=== PATIENT | male | born 1975 | race Caucasian/White ===

== ENCOUNTER 2017-11-13 06:52 | Day surgery (SDC) | payer BC, SELFPAY ==
[2017-11-10 09:36] VITALS: BMI 38.3
[2017-11-13] VITALS (11 sets, daily range): BP systolic 114–219; BP diastolic 62–96; PULSE 74–85; RESP 12–18; TEMP 36.4–36.6; O2SAT 76–99
--- NOTE | 2017-11-13 08:34 | HMH.PROC ---
[facility] Procedure Note Procedure Note:: Colonoscopy Procedure Report: Colonoscopy Endoscopist: Bruce Russ II, MD Referring physician: Julia ENAMORADO Date of Procedure: November 13, 2017 Equipment: Olympus 180 variable stiffness pediatric colonoscope Sedation: Fentanyl 200 mg IV/ Versed 11 mg IV Indication: Mr. Nunez is a 41-year-old gentleman who is here for screening colonoscopy. His brother had a very advanced colon polyp (benign) at the age of 39. His father also had colon polyps. The patient reports no abdominal pain, weight loss, change in his bowel habits or frequent rectal bleeding. The patient has had some intermittent bleeding with hemorrhoids. Procedure: Prior to the procedure, a history and physical exam was performed, and patient's medications and allergies were reviewed. The risks, benefits and alternatives of the sedation and procedure were discussed with the patient. All questions were answered and informed consent was obtained. The patient was brought to the procedure room. Patient identification and proposed procedure were verified by the physician and the nurse. The patient was placed in a left lateral decubitus position and the scope was passed under direct vision. Throughout the procedure, the patient's blood pressure, pulse, and oxygen saturations were monitored continuously. The colonoscopy was accomplished without difficulty. The patient tolerated the procedure well. Findings: On digital rectal examination there was normal rectal tone. There were no external hemorrhoids. The prostate was 2+, mildly firm but symmetric without nodules. The colonoscope was introduced through the anal canal to the rectum and advanced to the cecum. The ileocecal valve and appendiceal orifice were identified. The scope was advanced a short distance into the ileum which appeared grossly normal. The scope was then withdrawn into the colon. The cecum, ascending, transverse, descending, sigmoid and rectum were grossly normal. There were no mucosal abnormalities identified. Upon retroflexion within the rectum there were grade 1 internal hemorrhoids. Impression: 1. Normal colonoscopy with intubation of the terminal ileum 2. Grade 1 internal hemorrhoids Plan: I would recommend repeat screening/surveillance colonoscopy again at age 49 by ACS guidelines. I would encourage fiber bulk supplementation on a long-term daily maintenance basis.
--- NOTE | 2017-11-13 09:00 | P.PCN_ITS ---
[facility] Procedure Note Procedure Note:: Colonoscopy Procedure Report: Colonoscopy Endoscopist: Bruce Russ II, MD Referring physician: Julia ENAMORADO Date of Procedure: November 13, 2017 Equipment: Olympus 180 variable stiffness pediatric colonoscope Sedation: Fentanyl 200 mg IV/ Versed 11 mg IV Indication: Mr. Nunez is a 41-year-old gentleman who is here for screening colonoscopy. His brother had a very advanced colon polyp (benign) at the age of 39. His father also had colon polyps. The patient reports no abdominal pain , weight loss, change in his bowel habits or frequent rectal bleeding. The patient has had some intermittent bleeding with hemorrhoids. Procedure: Prior to the procedure, a history and physical exam was performed, and patient' s medications and allergies were reviewed. The risks, benefits and alternatives of the sedation and procedure were discussed with the patient. All questions were answered and informed consent was obtained. The patient was brought to the procedure room. Patient identification and proposed procedure were verified by the physician and the nurse. The patient was placed in a left lateral decubitus position and the scope was passed under direct vision. Throughout the procedure, the patient's blood pressure, pulse, and oxygen saturations were monitored continuously. The colonoscopy was accomplished without difficulty. The patient tolerated the procedure well. Findings: On digital rectal examination there was normal rectal tone. There were no external hemorrhoids. The prostate was 2+, mildly firm but symmetric without nodules. The colonoscope was introduced through the anal canal to the rectum and advanced to the cecum. The ileocecal valve and appendiceal orifice were identified. The scope was advanced a short distance into the ileum which appeared grossly normal. The scope was then withdrawn into the colon. The cecum , ascending, transverse, descending, sigmoid and rectum were grossly normal. There were no mucosal abnormalities identified. Upon retroflexion within the rectum there were grade 1 internal hemorrhoids. Impression: 1. Normal colonoscopy with intubation of the terminal ileum 2. Grade 1 internal hemorrhoids Plan: I would recommend repeat screening/surveillance colonoscopy again at age 49 by ACS guidelines. I would encourage fiber bulk supplementation on a long-term daily maintenance basis.
== END 2017-11-13 10:00 | disposition home or self-care (01) ==
LOC: OUTP 06:54
PROVIDERS: PCP Nurse Practitioner; Visit Provider Internal Medicine Gastroenterology
PROC: 0DJD8ZZ Inspection of Lower Intestinal Tract, Via Natural or Artificial Opening Endoscopic (ICD-10-PCS; CPT 45378; principal; 2017-11-13 08:30)
DX: Z12.11 Encounter for screening for malignant neoplasm of colon (principal); K64.0 First degree hemorrhoids
CPT/HCPCS: 45378; 99152

== ENCOUNTER 2019-03-01 20:49 | Emergency (ER) | payer BC, SELFPAY ==
[2019-03-01 21:04] VITALS: BP 140/84; PULSE 79; RESP 20; TEMP 36.8; O2SAT 98; BMI 34.8
--- NOTE | 2019-03-01 21:47 | HMH.EDUTC ---
[facility] Disposition Clinical Impression: Sinusitis Qualifiers: Sinusitis location: unspecified location Chronicity: unspecified Qualified Code(s): J32.9 - Chronic sinusitis, unspecified Disposition: Home, Self-Care Condition on Discharge: Good Instructions: Sinusitis, Sinus Headache, DI for Sinusitis, Amoxicillin and Clavulanic Acid, Prednisone Additional Instructions: Sinus infection Start antibiotic. Sinus infections may take 2-3 days to notice much improvement so be sure to use conservative measures as discussed for symptoms Flonase 2 spray in each nostril daily to help with nasal congestion, sinus an ear pressure/inflammation Lots of Fluids Sleep elevated Humidifer/vaporizer Augmentin can cause GI effects. Probiotics may help to prevent these symptoms Follow up with family doctor if no improvement or any worsening of symptoms Follow up with family doctor in the next 48-72 hours if no improvement or worsening of symptoms Return if needed Straight to ER if any life threatening symptoms Prescriptions: Amoxicillin/Potassium Clav [Augmentin 875-125 Tablet] 1 tab PO Q12H 7 Days #14 tab predniSONE [Prednisone 5mg Tab Dose-Pack] 5 mg PO UD DOSE PK #21 pack Referrals: Kamini Guerrero APRN [Primary Care Provider] - As needed Time of Disposition: 21:52 Medical Decision Making - Saleem Inquiry Pt receiving controlled substance: No Saleem was queried for this patient: No Vital Signs: 03/01/19 21:04 Temperature 98.3 F Temperature Source Oral Pulse Rate [Right Brachial] 79 Respiratory Rate 20 Blood Pressure [Right Arm] 140/84 Blood Pressure Mean [Right Arm] 102 Blood Pressure Source [Right Arm] Automatic Cuff Blood Pressure Position [Right Arm] Sitting 02 Sat by Pulse Oximetry 98 Oxygen Delivery Method Room Air [facility] HPI - General Stated complaint: head congestion Time Seen by Provider: 03/01/19 21:47 Mode of Arrival: Family Vehicle Source of Information: Patient Limitations: No Limitations Description of Symptoms (Recalled from Triage Doc. by RN): c/o congestion HEENT Symptoms (Recalled from RN notes): Yes Resp Symptoms (Recalled from RN notes): Yes Skin Symptoms (Recalled from RN notes): No MS Symptoms (Recalled from RN notes): No Functional Status (Recalled from RN notes): n/a - History of Present Illness Provider Complaint: Patient state that he has been having sinus pain and pressure for several days that has continued to get worse States that he has been having pressure like feeling in his teeth and behind his eyes States that he had similar symptoms about 2 weeks ago that came got better then returned worse than before - Related Data Previous Rx's Medication Instructions Recorded Amoxicillin/Potassium Clav 1 tab PO Q12H 7 Days #14 tab 03/01/19 [Augmentin 875-125 Tablet] predniSONE [Prednisone 5mg Tab 5 mg PO UD DOSE PK #21 pack 03/01/19 Dose-Pack] Allergies Allergy/AdvReac Type Severity Reaction Status Date / Time No Known Allergies Allergy Verified 11/13/17 07:37 - Worker's Comp Is this a Worker's Comp case?: No [facility] History - Hepatitis A Screen Drug use history?: No High risk sexual behaviors?: No History of sexually transmitted infection?: No 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r?: No Do you have indoor plumbing?: Yes Do you have electricity?: Yes Attestation statement:: This patient has been screened for Hepatitis A risk factors. I have reviewed the patient's past medical history: Yes Medical History: Reports:: Lung Disease (sleep apnea- uses cpap, hx of smoking) Denies:: Diabetes Mellitus Type 1, Diabetes Mellitus Type 2, Internal Pacemaker, Seizures Other Surgeries: No: Pacemaker - Social History Alcohol Intake: never Occupational Status: other - Psychiatric History Expresses thoughts of harming self/others: None Suicide Plan Description: No Plan ROS Obtained: Yes All systems reviewed & no additional complaints, Yes Systems reviewed as appropriate & n
--- NOTE | 2019-03-01 21:51 | ED_ITS ---
[facility] [place] Clinical Impression: Sinusitis Qualifiers: Sinusitis location: unspecified location Chronicity: unspecified Qualified Code(s): J32.9 - Chronic sinusitis, unspecified Disposition: Home, Self-Care Condition on Discharge: Good Instructions: Sinusitis, Sinus Headache, DI for Sinusitis, Amoxicillin and Clavulanic Acid, Prednisone Additional Instructions: Sinus infection Start antibiotic. Sinus infections may take 2-3 days to notice much improvement so be sure to use conservative measures as discussed for symptoms Flonase 2 spray in each nostril daily to help with nasal congestion, sinus an ear pressure/inflammation Lots of Fluids Sleep elevated Humidifer/vaporizer Augmentin can cause GI effects. Probiotics may help to prevent these symptoms Follow up with family doctor if no improvement or any worsening of symptoms Follow up with family doctor in the next 48-72 hours if no improvement or worsening of symptoms Return if needed Straight to ER if any life threatening symptoms Prescriptions: Amoxicillin/Potassium Clav [Augmentin 875-125 Tablet] 1 tab PO Q12H 7 Days #14 tab predniSONE [Prednisone 5mg Tab Dose-Pack] 5 mg PO UD DOSE PK #21 pack Referrals: Kamini Guerrero APRN [Primary Care Provider] - As needed Time of Disposition: 21:52 Medical Decision Making - Saleem Inquiry Pt receiving controlled substance: No Saleem was queried for this patient: No Vital Signs: 03/01/19 21:04 Temperature 98.3 F Temperature Source Oral Pulse Rate [Right Brachial] 79 Respiratory Rate 20 Blood Pressure [Right Arm] 140/84 Blood Pressure Mean [Right Arm] 102 Blood Pressure Source [Right Arm] Automatic Cuff Blood Pressure Position [Right Arm] Sitting 02 Sat by Pulse Oximetry 98 Oxygen Delivery Method Room Air [facility] [place] - General Stated complaint: head congestion Time Seen by Provider: 03/01/19 21:47 Mode of Arrival: Family Vehicle Source of Information: Patient Limitations: No Limitations Description of Symptoms (Recalled from Triage Doc. by RN): c/o congestion HEENT Symptoms (Recalled from RN notes): Yes Resp Symptoms (Recalled from RN notes): Yes Skin Symptoms (Recalled from RN notes): No MS Symptoms (Recalled from RN notes): No Functional Status (Recalled from RN notes): n/a - History of Present Illness Provider Complaint: Patient state that he has been having sinus pain and pressure for several days that has continued to get worse States that he has been having pressure like feeling in his teeth and behind his eyes States that he had similar symptoms about 2 weeks ago that came got better then returned worse than before - Related Data Previous Rx's Medication Instructions Recorded Amoxicillin/Potassium Clav 1 tab PO Q12H 7 Days #14 tab 03/01/19 [Augmentin 875-125 Tablet] predniSONE [Prednisone 5mg Tab 5 mg PO UD DOSE PK #21 pack 03/01/19 Dose-Pack] Allergies Allergy/AdvReac Type Severity Reaction Status Date / Time No Known Allergies Allergy Verified 11/13/17 07:37 - Worker's Comp Is this a Worker's Comp case?: No [facility] History - Hepatitis A Screen Drug use history?: No High risk sexual behaviors?: No History of sexually transmitted infection?: No 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
[2019-03-01 21:54] VITALS: BP 140/84; PULSE 79; RESP 20; TEMP 36.8; O2SAT 98
== END 2019-03-01 21:57 | disposition home or self-care (01) ==
PROVIDERS: Emergency Provider Nurse Practitioner; PCP Nurse Practitioner
DX: J32.9 Chronic sinusitis, unspecified (principal)
CPT/HCPCS: 99201

== ENCOUNTER → 2019-04-08 15:01 | Outpatient (CLI) | payer BC, SELFPAY ==
--- NOTE | 2019-04-08 15:07 | XR_ITS ---
XR finger RT min 2V CLINICAL INDICATION: ITS.REASON: SWELLING OF RT INDEX FINGER ORDERING PHYSICIAN: Julia Cervantes APRN PATIENT AGE: 43 years Comparison: None FINDINGS: No fracture or dislocation. No lytic or blastic change. Mild generalized soft tissue swelling. No radio opaque foreign body or soft tissue gas. IMPRESSION: Mild soft tissue swelling otherwise negative
== END ==
PROVIDERS: PCP Nurse Practitioner; Visit Provider Nurse Practitioner Family
DX: M79.89 Other specified soft tissue disorders (principal)
CPT/HCPCS: 73140

== ENCOUNTER → 2020-06-05 12:17 | Outpatient (CLI) | payer BC, SELFPAY ==
--- NOTE | 2020-06-05 12:24 | XR_ITS ---
PROCEDURE: XR HIP LT 2-3V W/PELVIS CLINICAL INDICATION: LT HIP INJURY Left hip pain COMPARISON: No exams were available for comparison FINDINGS: No fracture or dislocation is evident. No significant degenerative change. No lytic or blastic change. Unremarkable soft tissues. IMPRESSION: Negative left hip Dictated by: Uriel Nelson MD 06/05/2020 12:52 Uriel Nelson MD in [place] 06/05/2020 12:52
== END ==
PROVIDERS: PCP Nurse Practitioner Family; Visit Provider Nurse Practitioner Family
DX: S79.912A Unspecified injury of left hip, initial encounter (principal)
CPT/HCPCS: 73502

== ENCOUNTER 2020-08-19 12:23 | Emergency (ER) | payer BC, SELFPAY ==
[2020-08-19 12:55] VITALS: BP 149/90; PULSE 102; RESP 14; TEMP 37.4; O2SAT 96; BMI 34.8
[2020-08-19 13:03] LABS: UTC Influenza A Antigen Negative (Negative)
[2020-08-19 13:04] LABS: UTC Influenza B Antigen Negative (Negative)
--- NOTE | 2020-08-19 13:18 | HMH.EDUTC ---
[facility] [place] Disposition Clinical Impression: URI (upper respiratory infection) Qualifiers: URI type: unspecified URI Qualified Code(s): J06.9 - Acute upper respiratory infection, unspecified Disposition: Home, Self-Care Condition on Discharge: Good Instructions: Sore Throat, DI for Cough -- Adult, DI for Sinusitis Additional Instructions: *Monitor Temp, Over the counter Motrin or Tylenol as directed/as needed Tylenol every 4 hours and Motrin every 6 hours (as long as your family doctor has told you that you can take it) for fever or pain. and straight to ER if unable to lower temp less than 101.0 after medication given *Warm salt water gargles may help to soothe the throat *Throat Lozenges *Warm fluids like tea with honey may help to soothe the throat *Sleep elevated *Humidifier/Vaporizer *Flonase 2 sprays in each nostril daily but be aware that it may take 2-3 days before you notice improvement Follow up IMMEDIATELY for new or worsening symptoms or no Noticeable improvement over the next 48-72 hours. 911 for difficulty breathing or swallowing You was tested for today for COVID19 your test result should be back in the next 24-48 hours, you may call to the [facility] tomorrow to see if your test results are back and the result [phone] You was given a handout with instructions for Self Quarantine and Self isolation for while you wait on test results and what to do if they are positive If you are positive the Health Dept will be contacting you also Prescriptions: Fluticasone Propionate [Flonase 50mcg nasal spray 16gm] 1 spr NS DAILY #1 bottle Transmission Status: Pending to [facility] methylPREDNISolone [Medrol 4mg tab] 4 mg PO DIRECTED #21 tab Transmission Status: Pending to [facility] Azithromycin [Z-Davy 250mg Tab] 250 mg PO DIRECTED #6 tab Transmission Status: Pending to [facility] Referrals: Kamini Guerrero APRN [Primary Care Provider] - As needed Forms: Work/School Release Time of Disposition: 13:25 Medical Decision Making - Saleem Inquiry Pt receiving controlled substance: No Saleem was queried for this patient: No Vital Signs: 08/19/20 12:55 Temperature 99.4 F Temperature Source Oral Pulse Rate [Left Radial] 102 H Respiratory Rate 14 Blood Pressure [Right Arm] 149/90 H Blood Pressure Mean [Right Arm] 109 Blood Pressure Source [Right Arm] Automatic Cuff Blood Pressure Position [Right Arm] Sitting 02 Sat by Pulse Oximetry 96 Oxygen Delivery Method Room Air - Lab Data Lab results reviewed: Yes: I reviewed the patient's lab results. Lab Results 08/19/20 12:49: Influenza Type A Ag Negative, Influenza Type B Ag Negative Orders (Tests/Meds): ORDERS Category Date Time Status Covid-19 Nasal PCR ([facility]) Routine Lab 08/19/20 12:45 Received [facility] [place] HPI - General Stated complaint: flu symptoms Time Seen by Provider: 08/19/20 13:18 Mode of Arrival: Ambulatory Source of Information: Patient Limitations: No Limitations Description of Symptoms (Recalled from Triage Doc. by RN): pt reports having a fever, body aches, headache, and productive cough that started yesterday HEENT Symptoms (Recalled from RN notes): Yes (headache) Resp Symptoms (Recalled from RN notes): Yes Skin Symptoms (Recalled from RN notes): No MS Symptoms (Recalled from RN notes): No Functional Status (Recalled from RN notes): wnl - History of Present Illness Provider Complaint: Patient state sthat he has felt something coming on for several days States that yesterday he started having cough, sore throat, sinus pressure and drainage and over all not feeling well States that he has not been exposed to COVID that he is aware of but not certain States that he come in to get checked thinking he may have the flu - Related Data Previous Rx's Medication Instructions Recorded Azithromycin [Z-Davy 250mg Tab] 250 mg PO DIRECTED #6 tab 08/19/20 Fluticasone Propionate [Flonase 1 spr NS DAILY #1 maria elena
[2020-08-19 13:30] VITALS: BP 149/90; PULSE 102; RESP 14; TEMP 37.4; O2SAT 96
== END 2020-08-19 13:30 | disposition home or self-care (01) ==
PROVIDERS: Emergency Provider Nurse Practitioner; PCP Nurse Practitioner
DX: J06.9 Acute upper respiratory infection, unspecified (principal)
CPT/HCPCS: 87804; 99202; U0003

== ENCOUNTER → 2020-10-12 14:21 | Outpatient (CLI) | payer BC, SELFPAY | PROVIDERS: PCP Nurse Practitioner Family; Visit Provider Nurse Practitioner Family | DX: Z11.52 Encounter for screening for COVID-19 (principal); R68.89 Other general symptoms and signs | CPT/HCPCS: 87275; 87276; U0003 ==

== ENCOUNTER → 2020-10-19 12:38 | Outpatient (CLI) | payer BC, SELFPAY ==
[2020-10-20 11:45] LABS: Covid-19 Nasal PCR Sendout P&C Negative
== END ==
PROVIDERS: PCP Nurse Practitioner; Visit Provider Nurse Practitioner
DX: Z20.822 Contact with and (suspected) exposure to COVID-19 (principal)
CPT/HCPCS: U0004

== ENCOUNTER → 2020-12-10 10:37 | Outpatient (CLI) | payer BC, SELFPAY | PROVIDERS: PCP Nurse Practitioner Family; Visit Provider Nurse Practitioner Family | DX: Z20.822 Contact with and (suspected) exposure to COVID-19 (principal) | CPT/HCPCS: U0003 ==

== ENCOUNTER → 2021-05-30 12:32 | Outpatient (CLI) | payer SELFPAY | PROVIDERS: PCP Nurse Practitioner Family; Visit Provider Nurse Practitioner Family | DX: Z20.822 Contact with and (suspected) exposure to COVID-19 (principal); U07.1 COVID-19 | CPT/HCPCS: U0003 ==

== ENCOUNTER → 2021-08-22 14:06 | Outpatient (CLI) | payer BC, SELFPAY | PROVIDERS: PCP Nurse Practitioner Family; Visit Provider Nurse Practitioner | DX: Z20.822 Contact with and (suspected) exposure to COVID-19 (principal) | CPT/HCPCS: C9803; U0003; U0005 ==

== ENCOUNTER 2021-08-23 13:06 | Emergency (ER) | payer BC, SELFPAY ==
[2021-08-23 14:59] VITALS: BP 137/91; PULSE 78; RESP 18; TEMP 36.9; O2SAT 98; BMI 55.5
--- NOTE | 2021-08-23 15:58 | HMH.EDUTC ---
[facility] [place] Disposition Clinical Impression: Laceration of right hand Qualifiers: Encounter type: initial encounter Foreign body presence: without foreign body Qualified Code(s): S61.411A - Laceration without foreign body of right hand, initial encounter Disposition: Home, Self-Care Condition on Discharge: Good Instructions: DI for Laceration Repair-Skin Glue, DI for Minor Laceration Additional Instructions: Keep the wound clean and dry. Watch the for signs of infection, such as redness, swelling, drainage, fever. etc. Give tylenol or ibuprofen for pain. Follow up with your regular doctor. GO TO THE ER FOR ANY WORSENING SYMPTOMS OR CONCERNS. Referrals: Julia Cervantes APRN [Primary Care Provider] - Forms: Work/School Release Time of Disposition: 16:00 Medical Decision Making - Medical Records Medical records reviewed: No: I reviewed the patient's medical records. - Saleem Inquiry Pt receiving controlled substance: No Vital Signs: 08/23/21 14:59 08/23/21 16:11 Temperature 98.4 F 98.4 F Temperature Source Oral Oral Pulse Rate 78 Pulse Rate [Left Radial] 78 Respiratory Rate 18 18 Blood Pressure 137/91 H Blood Pressure [Right Arm] 137/91 H Blood Pressure Mean [Right Arm] 106 02 Sat by Pulse Oximetry 98 Oxygen Delivery Method Room Air Room Air [facility] [place] HPI - General Stated complaint: [id number] lac to right hand,home accident Time Seen by Provider: 08/23/21 15:00 Mode of Arrival: Ambulatory Source of Information: Patient Limitations: No Limitations Description of Symptoms (Recalled from Triage Doc. by RN): pt to [facility] per pvt car. pt states he was opening a can of meat this morning and cut his right hand. pt had a laceration to the right palm of his hand. pt reports 3/10 pain to the laceration. HEENT Symptoms (Recalled from RN notes): No Resp Symptoms (Recalled from RN notes): No Skin Symptoms (Recalled from RN notes): Yes MS Symptoms (Recalled from RN notes): No Functional Status (Recalled from RN notes): na - History of Present Illness Provider Complaint: He was opening a can of food today when he slipped and cut his right hand with the sharp part of the can. His tetanus immunization is up to date. - Related Data Previous Rx's Medication Instructions Recorded Azithromycin [Z-Davy 250mg Tab] 250 mg PO DIRECTED #6 tab 08/19/20 Fluticasone Propionate [Flonase 1 spr NS DAILY #1 bottle 08/19/20 50mcg nasal spray 16gm] methylPREDNISolone [Medrol 4mg 4 mg PO DIRECTED #21 tab 08/19/20 tab] Allergies Allergy/AdvReac Type Severity Reaction Status Date / Time No Known Allergies Allergy Verified 08/19/20 13:04 - Worker's Comp Is this a Worker's Comp case?: No [facility] History - Hepatitis A Screen Drug use history?: No High risk sexual behaviors?: No History of sexually transmitted infection?: No 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r?: No Do you have indoor plumbing?: Yes Do you have electricity?: Yes Attestation statement:: This patient has been screened for Hepatitis A risk factors. I have reviewed the patient's past medical history: Yes Medical History: Reports:: Lung Disease (sleep apnea- uses cpap, hx of smoking) Denies:: Diabetes Mellitus Type 1, Diabetes Mellitus Type 2, Internal Pacemaker, Seizures Other Surgeries: No: Pacemaker Amputation: No Fractures: No - Social History Alcohol Intake: never Occupational Status: employed Housing: house Household Members: spouse ROS Obtained: Yes All systems reviewed & no additional complaints - Constitutional Constitutional: Denies chills, Denies fever(s) - Musculoskeletal Musculoskeletal: Denies joint pain - Integumentary/Breasts Skin/Breast: Reports as per HPI - Neurologic Neurologic: Denies tingling/numbness/burning sensations Physical Exam - General General appearance: alert, in no apparent distress - Head Head exam: atraumatic, normocephalic, normal inspection - Eye Eye exam
[2021-08-23 16:11] VITALS: BP 137/91; PULSE 78; RESP 18; TEMP 36.9; O2SAT 98
== END 2021-08-23 16:12 | disposition home or self-care (01) ==
PROVIDERS: Emergency Provider Nurse Practitioner Family; PCP Nurse Practitioner Family
DX: S61.411A Laceration without foreign body of right hand, initial encounter (principal); W26.8XXA Contact with other sharp object(s), not elsewhere classified, initial encounter; Y92.019 Unspecified place in single-family (private) house as the place of occurrence of the external cause
CPT/HCPCS: 99202; G0463

== ENCOUNTER → 2021-10-25 12:54 | Outpatient (CLI) | payer BC, SELFPAY | PROVIDERS: Visit Provider Nurse Practitioner | DX: Z20.822 Contact with and (suspected) exposure to COVID-19 (principal) | CPT/HCPCS: C9803; U0003; U0005 ==

== ENCOUNTER 2021-10-27 14:52 | Emergency (ER) | payer BC, SELFPAY ==
[2021-10-27 16:41] VITALS: BP 109/79; PULSE 74; RESP 18; TEMP 37; O2SAT 96; BMI 39.9
--- NOTE | 2021-10-27 16:48 | HMH.EDUTC ---
[facility] [place] Disposition Clinical Impression: Close exposure to COVID-19 virus, Viral syndrome Disposition: Home, Self-Care Condition on Discharge: Good Instructions: DI for Viral Syndrome, DI for COVID-19 (Suspected or Confirmed ), Preventing the Spread of Coronavirus Discharge Instructions Additional Instructions: *Monitor Temp, Over the counter Motrin or Tylenol as directed/as needed Tylenol every 4 hours and Motrin every 6 hours (as long as your family doctor has told you that you can take it) for fever or pain. and straight to ER if unable to lower temp less than 101.0 after medication given *Warm salt water gargles may help to soothe the throat *Throat Lozenges *Warm fluids like tea with honey may help to soothe the throat *Sleep elevated *Humidifier/Vaporizer *Over the counter Cough medication like Robitussin may help with cough Make sure to drink plenty of fluids to stay hydrated Follow up IMMEDIATELY for new or worsening symptoms or no Noticeable improvement over the next 48-72 hours. 911 for difficulty breathing or swallowing You were tested for today for COVID19 your test result should be back in the next 24-48 hours, you may check your results on the [facility] if you have trouble logging on you may call [employer] for assistance You was given a handout with instructions for Self Quarantine and Self isolation for while you wait on test results and what to do if they are positive If you are positive the Health Dept will be contacting you also Make sure to take your Vitamins Vit. C Vit D and Zinc if you can take them Referrals: Julia Cervantes APRN [Primary Care Provider] - As needed Forms: Work/School Release Time of Disposition: 16:52 Medical Decision Making - Saleem Inquiry Pt receiving controlled substance: No Saleem was queried for this patient: No Vital Signs: 10/27/21 16:41 Temperature 98.6 F Temperature Source Oral Pulse Rate [Left] 74 Respiratory Rate 18 Blood Pressure [Right Arm] 109/79 L Blood Pressure Mean [Right Arm] 89 02 Sat by Pulse Oximetry 96 Orders (Tests/Meds): ORDERS Category Date Time Status Covid-19 Nasal PCR ([facility]) Routine Lab 10/27/21 16:32 Received [facility] [place] HPI - General Stated complaint: covid test Time Seen by Provider: 10/27/21 16:48 Mode of Arrival: Ambulatory Source of Information: Patient Limitations: No Limitations Description of Symptoms (Recalled from Triage Doc. by RN): PT C/O A FEVER, COUGH AND BODY ACHES. IS POSITIVE FOR COVID. HEENT Symptoms (Recalled from RN notes): No Resp Symptoms (Recalled from RN notes): Yes (COUGH) Skin Symptoms (Recalled from RN notes): No MS Symptoms (Recalled from RN notes): No Functional Status (Recalled from RN notes): WNL - History of Present Illness Provider Complaint: Patient state that his and daughter recently tested positive for COVID States that now he is having cough, nasal congestion body aches and chills States that he thinks he may have it now too so he came in to get checked out - Related Data Previous Rx's Medication Instructions Recorded Azithromycin [Z-Davy 250mg Tab] 250 mg PO DIRECTED #6 tab 08/19/20 Fluticasone Propionate [Flonase 1 spr NS DAILY #1 bottle 08/19/20 50mcg nasal spray 16gm] methylPREDNISolone [Medrol 4mg 4 mg PO DIRECTED #21 tab 08/19/20 tab] Allergies Allergy/AdvReac Type Severity Reaction Status Date / Time No Known Allergies Allergy Verified 08/19/20 13:04 - Worker's Comp Is this a Worker's Comp case?: No [facility] History - Hepatitis A Screen Drug use history?: No High risk sexual behaviors?: No History of sexually transmitted infection?: No 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r?: No Do you have indoor plumbing?: Yes Do you have electricity?: Yes Attestation statement:: This patient has been screened for Hepatitis A risk factors. I have reviewed the patient's past medical history: Yes Medical History: Reports:: Lung Diseas
[2021-10-27 17:03] VITALS: BP 109/79; PULSE 74; RESP 18; TEMP 37
== END 2021-10-27 17:05 | disposition home or self-care (01) ==
PROVIDERS: Emergency Provider Nurse Practitioner; PCP Nurse Practitioner Family
DX: U07.1 COVID-19 (principal); B34.9 Viral infection, unspecified
CPT/HCPCS: 99202; C9803; G0463; U0003; U0005

== ENCOUNTER 2022-01-07 18:17 | Emergency (ER) | payer BC, SELFPAY ==
[2022-01-07 18:56] VITALS: BP 178/93; PULSE 73; RESP 18; TEMP 37.6; O2SAT 98; BMI 39.9
[2022-01-07 19:08] LABS: UTC Influenza A Antigen Positive (Negative); UTC Influenza B Antigen Negative (Negative)
--- NOTE | 2022-01-07 19:39 | HMH.EDUTC ---
[facility] [place] [place] Disposition Clinical Impression: Influenza A Disposition: Home, Self-Care Condition on Discharge: Good Instructions: Influenza, DI for Influenza -- Adult Prescriptions: Ondansetron [Zofran 4mg ODT] 4 mg PO Q8HP PRN #20 tab PRN Reason: Nausea Transmission Status: Received by [facility] Benzonatate [Benzonatate 100mg cap] 100 mg PO TIDP PRN #30 cap PRN Reason: Cough Transmission Status: Received by [facility] Oseltamivir Phosphate [Tamiflu 75mg Capsule] 75 mg PO BID #10 cap Transmission Status: Received by [facility] Referrals: Julia Cervantes APRN [Primary Care Provider] - Forms: Work/School Release Time of Disposition: 20:01 Medical Decision Making - Medical Records Medical records reviewed: No: I reviewed the patient's medical records. - Saleem Inquiry Pt receiving controlled substance: No Vital Signs: 01/07/22 18:56 01/07/22 20:16 Temperature 99.7 F H 99.7 F H Temperature Source Oral Pulse Rate 73 Pulse Rate [Left] 73 Respiratory Rate 18 18 Blood Pressure 178/93 H Blood Pressure [Right Arm] 178/93 H Blood Pressure Mean [Right Arm] 121 02 Sat by Pulse Oximetry 98 - Lab Data Lab results reviewed: Yes: I reviewed the patient's lab results. Lab Results 01/07/22 18:53: Influenza Type A Ag Positive A, Influenza Type B Ag Negative [facility] [place] [place] HPI - General Stated complaint: possible flu exposure, possible sinus infection Time Seen by Provider: 01/07/22 19:39 Mode of Arrival: Ambulatory Source of Information: Patient Limitations: No Limitations Description of Symptoms (Recalled from Triage Doc. by RN): pt c/o body aches, congestion, fever and a YOUNG since yesterday. positive flu cases in the same house HEENT Symptoms (Recalled from RN notes): Yes Resp Symptoms (Recalled from RN notes): No Skin Symptoms (Recalled from RN notes): No MS Symptoms (Recalled from RN notes): No Functional Status (Recalled from RN notes): wnl - History of Present Illness Provider Complaint: He started feeling bad yesterday. He has been chilling, running low grade fever, cough and body aches. His family has had influenza. - Related Data Previous Rx's Medication Instructions Recorded Azithromycin [Z-Davy 250mg Tab] 250 mg PO DIRECTED #6 tab 08/19/20 Fluticasone Propionate [Flonase 1 spr NS DAILY #1 bottle 08/19/20 50mcg nasal spray 16gm] methylPREDNISolone [Medrol 4mg 4 mg PO DIRECTED #21 tab 08/19/20 tab] Benzonatate [Benzonatate 100mg 100 mg PO TIDP PRN #30 cap 01/07/22 cap] Ondansetron [Zofran 4mg ODT] 4 mg PO Q8HP PRN #20 tab 01/07/22 Oseltamivir Phosphate [Tamiflu 75 mg PO BID #10 cap 01/07/22 75mg Capsule] Allergies Allergy/AdvReac Type Severity Reaction Status Date / Time No Known Allergies Allergy Verified 08/19/20 13:04 - Worker's Comp Is this a Worker's Comp case?: No [facility] History - Hepatitis A Screen Drug use history?: No High risk sexual behaviors?: No History of sexually transmitted infection?: No 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r?: No Do you have indoor plumbing?: Yes Do you have electricity?: Yes Attestation statement:: This patient has been screened for Hepatitis A risk factors. I have reviewed the patient's past medical history: Yes Medical History: Reports:: Lung Disease (sleep apnea- uses cpap, hx of smoking) Denies:: Diabetes Mellitus Type 1, Diabetes Mellitus Type 2, Internal Pacemaker, Seizures Other Surgeries: No: Pacemaker Amputation: No Fractures: No - Social History Alcohol Intake: never Occupational Status: employed Housing: house Household Members: spouse ROS Obtained: Yes All systems reviewed & no additional complaints - Constitutional Constitutional: Reports body ache, Reports chills, Reports fever(s), Reports poor appetite, Reports malaise - Eyes Eyes: Denies eye discharge - ENT Ears, Nose, Mouth, and Throat: Reports as per HPI - Cardiovascular Cardiovascular
[2022-01-07 20:16] VITALS: BP 178/93; PULSE 73; RESP 18; TEMP 37.6
== END 2022-01-07 20:18 | disposition home or self-care (01) ==
PROVIDERS: Emergency Provider Nurse Practitioner Family; PCP Nurse Practitioner Family
DX: J10.1 Influenza due to other identified influenza virus with other respiratory manifestations (principal)
CPT/HCPCS: 87804; 99212; G0463

== ENCOUNTER → 2022-07-11 15:23 | Outpatient (CLI) | payer BC, SELFPAY ==
--- NOTE | 2022-07-11 15:35 | XR_ITS ---
FINAL REPORT CLINICAL HISTORY: DECREASED ROM, LEFT ANTERIOR SHOULDER PAIN FINDINGS: LEFT SHOULDER Three views demonstrate no acute fracture or dislocation. There is mild degenerative change of the glenohumeral joint. The visualized bony structures are well aligned. No soft tissue abnormality is seen. IMPRESSION: Mild degenerative change. Reviewed, Interpreted and Dictated by Froilan Mcgovern III, MD Transcribed by Mars Meyers Authenticated and [facility]
== END ==
PROVIDERS: PCP Nurse Practitioner Family; Visit Provider Nurse Practitioner Family
DX: M25.512 Pain in left shoulder (principal); M25.612 Stiffness of left shoulder, not elsewhere classified
CPT/HCPCS: 73030

== ENCOUNTER → 2022-07-23 10:47 | Outpatient (CLI) | payer BC, SELFPAY ==
--- NOTE | 2022-07-23 10:49 | MR_ITS ---
FINAL REPORT CLINICAL HISTORY: LEFT ANTERIOR SHOULDER PAIN, DECREASED ROM, NO KNOWN INJURY FINDINGS: Multiplanar MR imaging of the left shoulder was performed without contrast. There is supraspinatus and infraspinatus tendinosis. An intrasubstance tear is seen of the distal supraspinatus tendon measuring less than 50%. There is mild a.c. joint arthrosis with mild outlet narrowing. A small amount of fluid is present in the subacromial/subdeltoid bursa. There is a subchondral cyst in the superior humeral head. There is labral degeneration without tear. The long head of the biceps tendon is intact. A moderate glenohumeral joint effusion is identified. The musculature is intact. There is no evidence of soft tissue mass or cyst. IMPRESSION: Intrasubstance tear of the distal supraspinatus tendon measuring less than 50% with supraspinatus and infraspinatus tendinosis. Mild a.c. joint arthrosis with mild subacromial/subdeltoid bursitis. Labral degeneration without tear. Moderate glenohumeral joint effusion. Reviewed, Interpreted and Dictated by Froilan Mcgovern III, MD Transcribed by Rashida Welsh Authenticated and [facility]
== END ==
PROVIDERS: PCP Nurse Practitioner Family; Visit Provider Nurse Practitioner Family
DX: M25.512 Pain in left shoulder (principal); M25.612 Stiffness of left shoulder, not elsewhere classified
CPT/HCPCS: 73221

== ENCOUNTER 2022-07-31 17:19 | Emergency (ER) | payer BC, SELFPAY ==
--- NOTE | 2022-07-31 17:36 | EXP.UTC ---
Discharge Plan Disposition Patient Disposition: Home, Self-Care Condition: Good Prescriptions Prescriptions: New triamcinolone acetonide 0.025 % cream 1 applic topical TID PRN (Reason: itching) Qty: 15 0RF methylprednisolone 4 mg Tablets,Dose Pack 4 mg PO DIRECTED Qty: 21 0RF No Action azithromycin 250 MG tablet 250 mg PO DIRECTED Qty: 6 0RF Rx Instructions: Take two (2) tablets on day #1, then one (1) tablet day #2 thru #5 methylprednisolone 4 MG tablet 4 mg PO DIRECTED Qty: 21 0RF Rx Instructions: Take as directed on package instructions fluticasone propionate 120 SPR/BOT bottle 1 spr NS DAILY Qty: 1 0RF Rx Instructions: each nostril daily benzonatate 100 MG capsule 100 mg PO TIDP PRN (Reason: Cough) Qty: 30 0RF oseltamivir 75 MG capsule 75 mg PO BID Qty: 10 0RF ondansetron 4 MG tablet,disintegrating 4 mg PO Q8HP PRN (Reason: Nausea) Qty: 20 0RF Referrals Follow up/Referrals: Julia Cervantes APRN [Primary Care Provider] - See instructions Activity Restrictions/Add. Instructions Additional Instructions/Restrictions: avoid contact with the offending substance (poison sofia). Don't start the oral steroids until tomorrow. Don't put the topical steroids (triamcinolone) on your face or your groin. Follow up with your regular doctor. GO TO THE ER FOR ANY WORSENING SYMPTOMS OR CONCERNS Clinical Impressions Clinical Impression: Poison sofia dermatitis, Contact dermatitis Instructions Patient Instructions: DI for Poison Sofia Allergy, Methylprednisolone Injection Discharge ED Provider: Babar Badillo [facility] General Stated complaint: POSION SOFIA Time Seen by Provider: 07/31/22 17:36 History of Present Illness Provider Complaint: He states that for the past 5 days he has had worsening poison sofia symptoms on his bilateral forearms and face. Related Data Previous Rx's Medication Instructions Recorded azithromycin 250 mg tablet 250 mg PO DIRECTED #6 tabs 08/19/20 fluticasone propionate 50 1 spr NS DAILY ##1 08/19/20 mcg/actuation nasal spray,suspension methylprednisolone 4 mg tablet 4 mg PO DIRECTED #21 tabs 08/19/20 benzonatate 100 mg capsule 100 mg PO TIDP PRN Cough #30 caps 01/07/22 ondansetron 4 mg disintegrating 4 mg PO Q8HP PRN Nausea #20 tabs 01/07/22 tablet oseltamivir 75 mg capsule 75 mg PO BID #10 caps 01/07/22 methylprednisolone 4 mg tablets in 4 mg PO DIRECTED #21 tabs 07/31/22 a dose pack triamcinolone acetonide 0.025 % 1 applic topical TID PRN itching 07/31/22 topical cream #15 grams Allergies Allergy/AdvReac Type Severity Reaction Status Date / Time No Known Allergies Allergy Verified 08/19/20 13:04 PFSH PFS Social History Smoking Status: Never smoker alcohol intake: never current occupational status: employed Travel in the last 8 weeks: None household members: spouse housing: house current occupational exposures/hazards: No caffeine: Yes ROS Obtained: Yes All systems reviewed & no additional complaints except as documented Constitutional Constitutional: Denies chills and Denies fever(s) Eyes Eyes: Denies eye discharge ENT Ears, Nose, Mouth, and Throat: Denies dizziness, Denies otalgia and Denies sore throat Cardiovascular Cardiovascular: Denies chest pain Respiratory Respiratory: Denies shortness of breath, Denies chest congestion, Denies cough, Denies stridor and Denies wheezing Gastrointestinal Gastrointestingal: Denies nausea or vomiting Musculoskeletal Musculoskeletal: Reports system reviewed and no additional complaints, except as documented and Denies arthralgias Integumentary/Breasts Skin/Breast: Reports as per HPI and Reports rash Neurologic Neurologic: Denies dizziness and Denies paresthesias Allergic/Immunologic Allergic/Immunologic: Denies wheezing Physical Exam General General appearance: reyes
[2022-07-31 17:40] VITALS: BP 174/103; PULSE 83; RESP 18; TEMP 37.1; O2SAT 98; BMI 39.7
[2022-07-31 18:17] VITALS: BP 168/98; PULSE 81; RESP 18; TEMP 36.6; O2SAT 99
== END 2022-07-31 18:19 | disposition home or self-care (01) ==
PROVIDERS: Emergency Provider Nurse Practitioner Family; PCP Nurse Practitioner Family
DX: L23.7 Allergic contact dermatitis due to plants, except food (principal)
CPT/HCPCS: 96372; 99212; G0463

== ENCOUNTER 2023-11-20 16:22 | Outpatient (CLI) | payer BC, SELFPAY ==
--- NOTE | 2023-11-20 16:26 | MR_ITS ---
PROCEDURE INFORMATION: Exam: MR Left Upper Extremity Joint Without Contrast; Shoulder Exam date and time: 11/20/2023 4:25 PM Age: 47 years old Clinical indication: Pain; Shoulder; Left; Additional info: Tear of left supraspinatus TECHNIQUE: Imaging protocol: Magnetic resonance imaging of the left upper extremity without contrast. Exam focused on the shoulder. COMPARISON: MR SHOULDER LT WO CON 07/23/2022 11:10 AM FINDINGS: Bones/joints: Osseous alignment is normal. Moderate degenerative changes noted in the glenohumeral and acromioclavicular joints. Glenoid labrum: Unremarkable. No evidence of tear. Supraspinatus tendon: There is partial thickness signal abnormality involving the undersurface of the distal supraspinatus tendon and mid to superficial portion of the proximal supraspinatus tendon. No taran tendon rupture or retraction. Infraspinatus tendon: Unremarkable. No evidence of tear. Subscapularis tendon: Unremarkable. No evidence of tear. Teres minor tendon: Unremarkable. No evidence of tear. Tendon of biceps brachii: Unremarkable. No evidence of tear. Glenohumeral ligaments: Unremarkable. Soft tissues: 3.8 cm multi septated cyst noted posterior and superior to the neck of the bony glenoid, deep to the infraspinatus muscle. IMPRESSION: 1. Signal abnormality of the supraspinatus tendon which has worsened since the prior study suggesting full-thickness intrasubstance tearing/tendinosis without taran tendon rupture or retraction. Rotator cuff appears intact. 2. Interval development of multi septated 3.8 cm paralabral cyst deep to the infraspinatus tendon and superior/posterior to the neck of the bony glenoid. 3. Moderate degenerative changes of the acromioclavicular and glenohumeral joints.
== END 2023-11-20 23:59 ==
LOC: RAD 16:22
PROVIDERS: PCP Nurse Practitioner; Visit Provider Nurse Practitioner
DX: M75.102 Unspecified rotator cuff tear or rupture of left shoulder, not specified as traumatic (principal)
CPT/HCPCS: 73221